=== PATIENT | female | born 1965 | race Asian ===

== ENCOUNTER → 2016-10-30 | Outpatient (CLI) | payer OTHER ==
--- NOTE | 2016-10-30 09:04 | MA ---
Screening Digital Mammogram With iCAD Analysis Clinical Indications: Routine screening. Technique: Standard cephalocaudal and mediolateral oblique projections were obtained. This examinatio n was processed by the iCAD computer aided detection system. Comparison: October 2015, October 2014, October 2013, September 2012, September 2011. Breast density: Type B; Scattered fibroglandular densities. Findings: CAD was reviewed. There is an equivocal developing asymmetry in the central posterior left breast noted on the oblique view. No suspicious microcalcifications are seen. The right breast is sta ble in appearance. Impression: Possible developing left breast asymmetry requires further evaluation, BI-RADS 0 Recommendation: Spot compression assessment of the left breast with ultrasound suggested if the abnor mality persists on diagnostic evaluation. [facility] will send a result letter to the patient. Negative mammography should not preclude additional workup of a clinically suspicious finding. The patient's information is entered into a reminder system with a target due date for her next mammo gram.
== END ==
LOC: CIMAGING 08:15
DX: Z12.31 Encounter for screening mammogram for malignant neoplasm of breast (principal); R92.8 Other abnormal and inconclusive findings on diagnostic imaging of breast
CPT/HCPCS: G0202

== ENCOUNTER → 2016-11-12 | Outpatient (CLI) | payer OTHER ==
--- NOTE | 2016-11-12 13:22 | MA ---
Diagnostic Digital Left Mammography Clinical History: 51-year-old female with no indicated family history of breast cancer, who was noted to have an equivocal developing asymmetry in the left breast as a one-view finding on a recent scree betsy evaluation. Technique: Spot MLO view of the left breast and a true mediolateral view were obtained and compared t o previous studies dated October 30, 2016, October 25, 2015, October 14, 2014, October 13, 2013, [facility] 2011, and September 17, 2012. Additionally, this examination was processed by the [employer] computer -aided detection system. Breast Density: Type B. CAD Evaluation: Reviewed. Findings: There is a moderately dense heterogeneous residual fibroglandular pattern. The equivocal ar ea of architectural change does not persist with spot compression, and appears to have been related t o superimposition of normal fibroglandular structures. Impression: Benign mammography. BI-RADS Category 2. Recommendation: Routine annual mammographic screening. [facility] will send a result letter to the patient. Negative mammography should not preclude additional workup of a clinically suspicious finding. The patients information is entered into a reminder system with a target due date for her next mammog filippo.
== END ==
LOC: CIMAGING 12:36
DX: Z12.39 Encounter for other screening for malignant neoplasm of breast (principal); R92.2 Inconclusive mammogram; Z80.3 Family history of malignant neoplasm of breast
CPT/HCPCS: G0206

== ENCOUNTER → 2017-11-05 | Outpatient (CLI) | payer OTHER | LOC: CIMAGING 14:22 | DX: Z12.31 Encounter for screening mammogram for malignant neoplasm of breast (principal) ==

== ENCOUNTER → 2018-11-06 | Outpatient (CLI) | payer OTHER | LOC: CIMAGING 08:03 | DX: Z12.31 Encounter for screening mammogram for malignant neoplasm of breast (principal) ==